=== PATIENT | male | born 1995 | race African-American/Black ===

== ENCOUNTER 2017-03-21 01:36 | Emergency (ER) | payer OTHER ==
[~2017-03-21] VITALS: Ht 180.3 cm; Wt 68.0 kg
[~2017-03-21 01:36] MED LIST: CONCERTA18 M1; LORTAB 5 MG/5001 TA1 PO
[2017-03-21 02:36] VITALS: BP 138/93
== END 2017-03-21 02:41 | disposition home or self-care (01) ==
LOC: ER 01:36
DX: S80.01XA Contusion of right knee, initial encounter (principal); W18.09XA Striking against other object with subsequent fall, initial encounter; Y93.89 Activity, other specified; Y92.89 Other specified places as the place of occurrence of the external cause; Y99.8 Other external cause status